=== PATIENT | male | born 1960 | race Caucasian/White ===

== ENCOUNTER 2024-02-01 13:13 | Inpatient (IN) | payer OTHER ==
[2024-02-01 14:23] LABS: #Basophils 0.06 10x3/uL (0.0-0.2); %Basophils 0.6 % (0.0-1.0); %Eosinophils 1.5 % (0.0-10.0); %Lymphocytes 15.2 % (21.0-51.0); %Monocytes 5.4 % (0.0-10.0); Hematocrit 46.7 % (42.0-52.0); Hemoglobin 15.8 g/dL (14.0-18.0); Mean Corpuscular HGB CONC 33.8 g/dL (32.0-36.0); Mean Corpuscular Hemoglobin 33.8 pg (27.0-31.0); Mean Corpuscular Volume 99.8 fL (78.0-98.0); Mean Platelet Volume 10.4 fL (7.4-10.4); Platelet Count 181 10x3/uL (130-400); RBC Distribution Width 12.6 % (11.5-14.5); Red Blood Cell (RBC) Count 4.68 mill/uL (4.70-6.10)
[2024-02-01 14:35] LABS: Anion Gap 14 mmol/L (10-20); BUN (Urea Nitrogen) 22 mg/dL (8.4-25.7); Bilirubin, Total 0.6 mg/dL (0.2-1.2); Calc. Creatinine Clearance 0 mL/min (70-130); Calcium 8.8 mg/dL (7.8-10.44); Carbon Dioxide 21 mmol/L (23-31); Chloride 111 mmol/L (98-107); Estimated GFR 48; Glucose 107 mg/dL (80-115); PTT 30.8 sec (22.9-36.1); Potassium 4.3 mmol/L (3.5-5.1); Prothrombin Time 13.7 sec (12.0-14.7); Sodium 142 mmol/L (136-145)
[2024-02-01 14:36] LABS: ALT (SGPT) 38 U/L (8-55); AST (SGOT) 23 U/L (5-34); Albumin 3.5 g/dL (3.4-4.8); Alkaline Phosphatase 73 U/L (40-110); Globulin 3.3 g/dL (2.4-3.5); Protein, Total 6.8 g/dL (5.8-8.1)
[2024-02-01 14:40] LABS: Troponin I 0.012 ng/mL (< 0.028)
[2024-02-01] MEDS ORDERED: Iopamidol-370 76% 500 ML MDV (1 ML CHARGE) ONE (15:32)
[2024-02-01] MEDS ORDERED: Albuterol 2.5 MG (3 mL) NEB ONE (16:51)
[2024-02-01] MEDS ORDERED: Ipratropium Bromide 2.5 ml Neb ONE (16:51)
[2024-02-01] MEDS ORDERED: Ipratropium/Albuterol 3 ML NEB NEB PRN (17:20)
[2024-02-01] MEDS ORDERED: Labetalol HCl 100 MG/20 ML VIAL SLOW IVP PRN (17:22)
[2024-02-01] MEDS ORDERED: Sodium Chloride 0.9% 1,000 ML IV SCH (17:30)
[2024-02-01 18:56] LABS: Troponin I Less than 0.010 ng/mL (< 0.028)
[2024-02-01 20:52] VITALS: BMI 38.2
[2024-02-01] MEDS: Lactated Ringer's 1,000 ML IV SCH (21:25)
[2024-02-01] MEDS: methylPREDNISolone Sod Succ 40 MG VIAL IVP SCH (21:25)
[2024-02-01] MEDS: Ipratropium/Albuterol 3 ML NEB NEB SCH (22:43)
[2024-02-02] MEDS: Acetaminophen 500 MG TAB PO SCH (00:51)
[2024-02-02 04:10] LABS: #Basophils 0.03 10x3/uL (0.0-0.2); #Eosinophils Less than 0.03 10x3/uL (0.0-0.7); %Basophils 0.3 % (0.0-1.0); %Eosinophils 0.1 % (0.0-10.0); %Lymphocytes 5.1 % (21.0-51.0); %Monocytes 1.2 % (0.0-10.0); %Neutrophils 92.8 % (42.0-75.0); Hematocrit 45.9 % (42.0-52.0); Hemoglobin 15.2 g/dL (14.0-18.0); Mean Corpuscular HGB CONC 33.1 g/dL (32.0-36.0); Mean Corpuscular Hemoglobin 33.7 pg (27.0-31.0); Mean Corpuscular Volume 101.8 fL (78.0-98.0); Mean Platelet Volume 10.9 fL (7.4-10.4); Platelet Count 166 10x3/uL (130-400); RBC Distribution Width 12.3 % (11.5-14.5); Red Blood Cell (RBC) Count 4.51 mill/uL (4.70-6.10)
[2024-02-02 04:34] LABS: Anion Gap 14 mmol/L (10-20); BUN (Urea Nitrogen) 23 mg/dL (8.4-25.7); Calc. Creatinine Clearance 71 mL/min (70-130); Calcium 8.6 mg/dL (7.8-10.44); Carbon Dioxide 22 mmol/L (23-31); Chloride 107 mmol/L (98-107); Estimated GFR 47; Glucose 179 mg/dL (80-115); Potassium 5.1 mmol/L (3.5-5.1); Sodium 138 mmol/L (136-145)
[2024-02-02] MEDS ORDERED: Ondansetron PF 4 MG/2 ML Vial IVP PRN (08:06)
[2024-02-02] MEDS ORDERED: Non-Formulary Item 1 EACH (Budesonide/Glycopyr/Formoterol [Breztri Aerosphere Inhaler] 10 PO SCH (09:00)
[2024-02-02] MEDS: Enoxaparin 40 MG (0.4 mL) SYRINGE SC SCH (09:52)
[2024-02-02] MEDS: Thiamine 100 MG TAB PO SCH (09:52)
[2024-02-02] MEDS: Folic Acid 1 MG TAB PO SCH (09:52)
[2024-02-02] MEDS: Multivit, Therapeutic 1 TAB PO SCH (09:52)
[2024-02-02] MEDS: Acetaminophen 325 MG TAB PO PRN (16:47)
[2024-02-02] MEDS: Mometasone 100 MCG HFA INHALER (RT USE) INH SCH (19:19)
[2024-02-02] MEDS: Amlodipine 10 MG TAB PO SCH (20:30)
[2024-02-03] MEDS: Ketorolac Tromethamine 30 MG (1 mL) VIAL IVP SCH (00:35)
[2024-02-03] MEDS: traMADol HCl 50 MG TAB PO PRN (10:23)
[2024-02-03] MEDS: predniSONE 20 MG TAB PO SCH (10:53)
[2024-02-03] MEDS: guaiFENesin ER 600 MG TAB PO SCH (20:47)
[2024-02-04] MEDS ORDERED: Lidocaine 1% w/Epinephrine 1:100K 20 ML VIAL ONE (07:07)
[2024-02-04] MEDS: Lisinopril 5 MG TAB PO SCH (09:02)
[2024-02-04 11:42] VITALS: BP 107/66; TEMP 98.2
[2024-02-04] MEDS: Ipratropium/Albuterol 3 ML NEB NEB PRN (11:49)
== END 2024-02-04 16:15 | disposition home or self-care (01) | DRG 312 ==
LOC: ERS 13:13 → INTOOBSV 17:19 → 2NO 17:19 → OBSVTOIN 17:19
PROVIDERS: ADMIT Internal Medicine; ATTEND Internal Medicine
DX: I95.1 Orthostatic hypotension (principal); J44.1 Chronic obstructive pulmonary disease with (acute) exacerbation; N17.9 Acute kidney failure, unspecified; I48.0 Paroxysmal atrial fibrillation; N18.30 Chronic kidney disease, stage 3 unspecified; Z79.899 Other long term (current) drug therapy; I12.9 Hypertensive chronic kidney disease with stage 1 through stage 4 chronic kidney disease, or unspecified chronic kidney disease; Z98.890 Other specified postprocedural states; F17.210 Nicotine dependence, cigarettes, uncomplicated; Z88.8 Allergy status to other drugs, medicaments and biological substances
CPT/HCPCS: 33285; 36415; 70450; 70496; 70498; 70551; 71046; 72125; 72128; 72131; 80048; 80053; 84484; 85025; 85610; 85730; 93005; 93306; 94644; 94664; J1650; J1885; J2919; J7120; J7512; J7611; J7620; J7644; Q9967